=== PATIENT | male | born 1995 | race Hispanic/Latino ===

== ENCOUNTER 2022-12-11 20:55 | Emergency (ER) | payer SELFPAY ==
--- NOTE | ~2022-12-11 | CT_ITS ---
EXAMINATION: CT abdomen pelvis w con DATE: 12/12/2022 01:49 INDICATION: Left upper quadrant pain TECHNIQUE: Computed tomography (CT) of the abdomen and pelvis was performed with 100 cc Omnipaque 350 intravenous contrast. The dose-length product was 417.82 mGy-cm. Automated exposure control and iter ative reconstruction technique were employed. COMPARISON: None. FINDINGS: Lung bases are unremarkable. Heart size normal. There is gynecomastia. No significant pleur al or pericardial effusion. The liver, spleen, pancreas, adrenal glands and kidneys are unremarkable. Gallbladder is present. Luca dder is unremarkable. Nonobstructive bowel gas pattern. No acute osseous abnormality. No significant vascular abnormality. No lymphadenopathy. Nonobstructive bowel pattern. No free air or free fluid. IMPRESSION: 1. No acute abdominal abnormality. Reviewed, dictated and finalized at location [facility] [employer]
[2022-12-11 21:00] VITALS: BP 134/82; PULSE 94; RESP 15; TEMP 36.7; O2SAT 99
[2022-12-12 00:44] LABS: Basophils Absolute Auto 0.1 K/mm3 (0.0-0.1); Basophils Percent Auto 0.7 % (0.2-1.2); Eosinophils Absolute Auto 0.1 K/mm3 (0-0.3); Eosinophils Percent Auto 1.5 % (0-4.4); Hematocrit 45.3 % (42.0-52.0); Immature Granulocyte Absolute 0.02 K/mm3 (0.00-0.031); Immature Granulocyte Percent A 0.3 % (0-0.5); Lymphocytes Absolute Auto 1.87 K/mm3 (0.9-3.2); Lymphocytes Percent Auto 24.8 % (18.3-44.2); Mean Corpuscular HGB Conc 35.3 g/dl (32-36); Mean Corpuscular Hemoglobin 30.5 pg (26-34); Mean Corpuscular Volume 86.3 fl (80-100); Mean Platelet Volume 10.2 fl (7.4-10.4); Monocytes Absolute Auto 0.7 K/mm3 (0.1-0.6); Monocytes Percent Auto 8.9 % (2.6-8.5); Neutrophils Absolute Auto 4.8 K/mm3 (1.3-6.7); Neutrophils Percent Auto 63.8 % (45.5-73.1); Platelet Count Result 180 k/mm3 (150-375); Red Blood Count 5.25 M/mm3 (4.6-6.20); Red Cell Distribution Width 12.9 % (11.5-14.5); White Blood Count 7.5 K/mm3 (4.5-10.0)
[2022-12-12] MEDS: MORPHINE SULFATE (*CRX) 4 MG/ML INJ IV PUSH (00:57)
[2022-12-12 01:00] LABS: Alanine Aminotransferase 41 U/L (6-50); Albumin Level 4.8 g/dL (3.5-5.1); Alkaline Phosphatase 119 U/L (38-126); Anion Gap 5 mmol/L (8-16); Aspartate Amino Transferase 38 U/L (17-59); Bilirubin,Total 0.6 mg/dL (0.2-1.3); Blood Urea Nitrogen 14 mg/dL (9-20); Calcium 8.8 mg/dL (8.4-10.2); Carbon Dioxide 27 mmol/L (22-30); Chloride 102 mmol/L (98-107); Estimated CRCL calculation 125 ml/min; Estimated Glomerular Filt Rate > 60; Glucose 107 mg/dL (65-110); Lipase 81 U/L (23-300); Sodium 134 mmol/L (137-145)
--- NOTE | 2022-12-12 02:46 | ED.ABDPAIN ---
HPI - Abdominal Pain General Chief Complaint: Abdominal Pain Stated Complaint: LUQ ABD Pain Time Seen by Provider: 12/12/22 00:15 History of Present Illness HPI narrative: Patient is a 27-year-old male who presents ER with left upper quadrant abdominal pain. Ongoing intermittently over the last 3 weeks. He has been taking oral antacid medication without improvement. Tonight it returned and was intense he came to the ER to be evaluated. No diarrhea but reports he has intermittently had some blood in his stool but none today. The blood is mixed with firm stool. He also sees it on the paper. No history of ulcerative colitis or Crohn's disease. No family history of inflammatory bowel disease. No fevers or chills or sweats. Cannot describe any modifying factors. Patient reports he does occasionally have vomiting with this. Related Data Allergies Allergy/AdvReac Type Severity Reaction Status Date / Time No Known Allergies Allergy Verified 12/12/22 00:55 Review of Systems Review of Systems: All systems reviewed & are unremarkable except as noted in HPI and below Constitutional: Constitutional: Denies chills, Denies fatigue and Denies fever(s) ENT: Denies nasal congestion and Denies sore throat Cardiovascular: Cardiovascular: Denies chest pain, Denies rapid heart rate and Denies radiating jaw, neck or arm pain Respiratory: Respiratory: Denies cough and Denies dyspnea Gastrointestinal: Gastrointestinal: Reports abdominal pain, Denies constipation, Denies diarrhea, Reports nausea and Reports vomiting Genitourinary: Genitourinary: Denies dysuria and Denies urinary frequency PMFSH Past Medical History Medical History (Updated 12/12/22 @ 02:51 by Darryn Haider MD) Healthy adult male Surgical History Surgical History (Updated 12/12/22 @ 02:47 by Darryn Haider MD) No history of previous surgery Exam Narrative: GENERAL: Well-appearing, well-nourished, and in no acute distress. HEAD: Normocephalic, atraumatic. EYES: PERRL and EOMI. CHEST: Clear to auscultation. No respiratory distress. HEART: Regular rate and rhythm. Normal peripheral pulses. ABDOMEN: Soft, nontender with mild discomfort in left upper quadrant, nondistended. EXTREMITIES: Normal range of motion. No edema. SKIN: Warm, dry, no rash. NEURO: Alert and oriented x3. PSYCH: Normal mood and affect. Course Course Emergency Course: Unremarkable evaluation. Recommend follow-up with GI given intermittent blood in his stools. No anemia. Will prescribe pantoprazole. Vital Signs Vital signs: Vital Signs Temperature 98.1 F 12/11/22 21:00 Pulse Rate 94 12/11/22 21:00 Respiratory Rate 15 12/11/22 21:00 Blood Pressure 134/82 12/11/22 21:00 Pulse Oximetry 99 12/11/22 21:00 Oxygen Delivery Room Air 12/11/22 21:00 Temperature 98.1 F 12/11/22 21:00 Pulse Rate 94 12/11/22 21:00 Respiratory Rate 15 12/11/22 21:00 Blood Pressure 134/82 12/11/22 21:00 Pulse Oximetry 99 12/11/22 21:00 Oxygen Delivery Room Air 12/11/22 21:00 MDM - Abdominal Pain Lab Data 12/12/22 00:30 12/12/22 00:30 Labs: Lab Results 12/12/22 12/12/22 Range/Units 00:30 00:30 WBC 7.5 (4.5-10.0) K/mm3 RBC 5.25 (4.6-6.20) M/mm3 Hgb 16.0 (14.0-18.0) g/dL Hct 45.3 (42.0-52.0) % MCV 86.3 (80-100) fl MCH 30.5 (26-34) pg MCHC 35.3 (32-36) g/dl RDW 12.9 (11.5-14.5) % Plt Count 180 (150-375) k/mm3 MPV 10.2 (7.4-10.4) fl Immature Gran % (Auto) 0.3 (0-0.5) % Neut % (Auto) 63.8 (45.5-73.1) % Lymph % (Auto) 24.8 (18.3-44.2) % [place] % (Auto) 8.9 H (2.6-8.5) % Eos % (Auto) 1.5 (0-4.4) % Baso % (Auto) 0.7 (0.2-1.2) % Lymph # (Auto) 1.87 (0.9-3.2) K/mm3 [place] # (Auto) 0.7 H (0.1-0.6) K/mm3 Eos # (Auto) 0.1 (0-0.3) K/mm3 Baso # (Auto) 0.1 (0.0-0.1) K/mm3 Abs Immat Gran (auto) 0.02 (0.00-0.031) K/mm3 Absolute Neuts (auto) 4.8
[2022-12-12 03:39] VITALS: BP 116/71; PULSE 76; RESP 16; TEMP 36.6; O2SAT 98
== END 2022-12-12 03:42 | disposition home or self-care (01) ==
PROVIDERS: Emergency Medicine; Emergency Provider Emergency Medicine; PCP Internal Medicine
DX: K21.9 Gastro-esophageal reflux disease without esophagitis (principal)
CPT/HCPCS: 36415; 74177; 80053; 83690; 85025; 96374; 99284; J2270; Q9967